=== PATIENT | female | born 1970 | race Caucasian/White ===

== ENCOUNTER 2016-11-14 00:27 | Emergency (ER) | payer BC ==
[~2016-11-14] VITALS: Ht 172.7 cm; Wt 90.7 kg
[2016-11-14 00:27] VITALS: BP 145/87
[~2016-11-14 00:27] MED LIST: ACET325T9 PO; ATEN50TA PO; ATOM25CA PO; CHOL20003 PO; FERR325T58 PO; FLUO20CA16 PO; LAMO100T5 PO; LISI-338 PO; LISI10TA2 PO; LISI2.5T PO; MELO-150 PO; METF500T4 PO; MULT-317 PO; MULT-496 PO; NAPR500T3 PO; PANT40TA3 PO; RANI150C PO; RANI150T2 PO; SIMV20TA PO; SIMV20TA3 PO; SIMV40TA3 PO
--- NOTE | 2016-11-14 01:34 | ED.ADGEN ---
Past History Past Medical History: Arthritis, Diabetes, Gallstones, GERD, High Cholesterol, Hypertension Past Surgical History: Cholecystectomy, Other Smoking: Non-smoker Alcohol Use: None Drug Use: None Adult General Chief Complaint Chief Complaint Left knee pain HPI HPI He is a pleasant 46-year-old female who presents with a two-day history of left knee pain that began relatively acutely on getting up from a seated position using the restroom to standing position. Initially upon rising she felt a burning sensation and increased pain to the medial inferior aspect of her left knee. She does have a history of degenerative joint changes in that knee and hip secondary to overuse syndrome area she's been told she needs any replacement but is not gone in evaluation for that purpose. She has a history of diabetes hypertension high cholesterol degenerative joint disease chronic history of left lump in her breast. She does not smoke does not drink doesn't use any recreational drugs rising direct trauma to the knee numbness and tingling localized swelling fevers chills rash. She says that the pain is improved with oral anti-inflammatories worse when she bends or walks and puts pressure on the knee. She has been using a knee immobilizer just does help with her discomfort. She describes some joint instability. Review of Systems Review of Systems Constitutional: Denies fever or chills [] Eyes: Denies change in visual acuity, redness, or eye pain [] HENT: Denies nasal congestion or sore throat [] Respiratory: Denies cough or shortness of breath [] Cardiovascular: No additional information not addressed in HPI [] GI: Denies abdominal pain, nausea, vomiting, bloody stools or diarrhea [] : Denies dysuria or hematuria [] Musculoskeletal: Complains of knee pain Integument: Denies rash or skin lesions [] Neurologic: Denies headache, focal weakness or sensory changes [] Endocrine: Denies polyuria or polydipsia [] Family History Family History Medical family history for high cholesterol she will vascular accidents diverticulitis SC in her mother father has COPD coronary artery disease and related blood pressure elevated cholesterol lung cancer. Brother had massive SC at 44 years old sister had anemia hypertension and multiple breast lumps. Current Medications Current Medications Current Medications Medications (Trade) Dose Ordered Sig/Zoe Start Time Stop Time Status Last Admin Dose Admin Ketorolac Tromethamine (Toradol) 60 mg 1X ONCE 11/14/16 02:00 11/14/16 02:01 11/14/16 01:39 60 MG Allergies Allergies Allergies Coded Allergies Type Severity Reaction Last Updated Verified hydrocodone Adverse Reaction Intermediate N/V 08/01/16 Yes Physical Exam Physical Exam Constitutional: Well developed, well nourished, no acute distress, non-toxic appearance. [] Cardiovascular:Heart rate regular rhythm, no murmur [] Lungs & Thorax: Bilateral breath sounds clear to auscultation [] Skin: Warm, dry, no erythema, no rash. [] Extremities: Patient has tenderness to palpation over the medial inferior aspect of the medial collateral ligament as well as the patella. She has no warmth to the joint no evidence of significant cellulitis or soft tissue swelling. Small joint effusion noted along the medial aspect of the joint line. Patient has a negative Jasmin's negative anterior and posterior drawer test negative Lockman's test patient has no hesitation of flexion of the leg and extension of the leg. She has good posterior Refill +2 peripheral pulses at the posterior tibialis and popliteal arteries. Patient has normal cap refill +2 with normal sensation to light touch and proprioception. He has no tenderness of the ankle or hip on the left Neurologic: Alert and oriented X 3, normal motor function, normal sensory function, no focal deficits noted. [] Psychologic: Affect normal, judgement normal, mood normal. [] EKG EKG [] Radiology/Procedures Radiology/Procedures [X-ray date 11/14/2012 time 1:34 AM demonstrates severe osteoarthritis with joint space narrowing with no obvious tibial plateau fracture tibial spine fracture or significant joint effusion. There is no soft tissue swelling or area of subcutaneous air there is no obvious fracture.] Impressions: Knee pain secondary to osteoarthritis and degenerative joint changes. A chronic history of knee pain known to need a knee replacement came in for an evaluation for knee pain that acutely was worse with forced extension while sitting from a sitting position patient was ordered for an occult fracture somewhere in her knee joint. There is no evidence of laxity on physical examination there is no evidence of joint effusion or septic joint. At this point patient will be placed in an immobilizer and given crutches if necessary and pain control with anti-inflammatory very short course given her prior medical problems. Also referral back to her orthopedic surgeon for MRI completion and possible surgery to replace the joint. Patient given precautions asked to return for any increasing pain decreased sensation in the leg localized swelling fevers chills rash with joint pain or questions or concerns. Course & Med Decision Making Course & Med Decision Making Pertinent Labs and Imaging studies reviewed. (See chart for details) [] Final Impression Final Impression Degenerative joint changes in the knee chronic knee pain, osteoarthritis [] Problems: Dragon Disclaimer Dragon Disclaimer This electronic medical record was generated, in whole or in part, using a voice recognition dictation system. LINDA STONE MD Nov 14, 2016 01:34
[2016-11-14] MEDS ORDERED: NAPR500T PO (01:57)
[2016-11-14] MEDS ORDERED: KETOROLAC 60 MG/2 ML VIAL. IM ONE (02:00)
--- NOTE | 2016-11-14 07:22 | RAD ---
Left knee radiographs History: Severe left knee pain for 2 days. Comparison: None. Findings: AP, lateral, and oblique views of the left knee. No acute fracture or dislocation is identified. There may be trace joint effusion. There is advanced lateral compartment degeneration with large marginal osteophyte formation as well as almost complete loss of joint space. Moderate-severe medial compartment degeneration with large marginal osteophyte formation as well as a suspected presence of a joint body. Moderate-severe patellofemoral compartment degeneration is present. Impression: 1. Advanced tricompartment degeneration, atypically advanced for patient's age. 2. No acute fracture identified.
== END 2016-11-14 02:07 | disposition home or self-care (01) ==
LOC: ER 00:27
DX: G89.29 Other chronic pain (principal); M25.562 Pain in left knee; M17.12 Unilateral primary osteoarthritis, left knee; E78.00 Pure hypercholesterolemia, unspecified; E11.9 Type 2 diabetes mellitus without complications; I10 Essential (primary) hypertension; K21.9 Gastro-esophageal reflux disease without esophagitis; N63 Unspecified lump in breast; Z88.5 Allergy status to narcotic agent
CPT/HCPCS: 29505; 73562; 96372; 99284; J1885

== ENCOUNTER → 2017-04-22 | Outpatient (CLI) | payer BC ==
[~2017-04-22] MED LIST changes: -CHOL20003 PO; +CHOL20009 PO; -MELO-150 PO; +MELO15TA23 PO; +NAPR500T PO; -NAPR500T3 PO; +NAPR500T4 PO
--- NOTE | 2017-04-22 15:29 | RAD ---
Left breast ultrasound, 04/22/2017: History: Follow-up breast nodule A targeted ultrasound exam of the left breast was performed at the 2:00 location. Approximately 3 cm from the nipple there is a smooth oval-shaped hypoechoic nodule with mildly heterogeneous low level internal echoes. It is wider than tall. It currently measures approximately 6 x 7 x 4 mm. It has shown no definite change since the previous study. This would favor a benign etiology such as a fibroadenoma. Incidental note is again made of a small smooth cyst at the 1:00 location, approximate 7 cm from the nipple. IMPRESSION: Unchanged small left breast nodule with features most compatible with a fibroadenoma. Further sonographic surveillance is suggested to confirm stability. BI-RADS 3-probably benign findings.
== END | disposition home or self-care (01) ==
LOC: US 13:59
PROVIDERS: ATTEND Specialist
DX: N60.02 Solitary cyst of left breast (principal); N63.20 Unspecified lump in the left breast, unspecified quadrant
CPT/HCPCS: 76641

== ENCOUNTER → 2019-05-19 | Outpatient (CLI) | payer BC ==
[~2019-05-19] MED LIST changes: +METF500T16 PO; -METF500T4 PO; +NAPR-514 PO; +NAPR-683 PO; -NAPR500T PO; -NAPR500T4 PO
--- NOTE | 2019-05-20 11:07 | RAD ---
VENOUS REFLUX BILATERAL History: Varicose veins. Comparison: None. Discussion: Multiple longitudinal and transverse high resolution real-time images of the superficial venous system of the bilateral lower extremities. Left proximal greater saphenous vein measures 6 mm. Left proximal thigh greater saphenous vein measures 4 mm. Left proximal calf greater saphenous vein measures 2 mm with 0.7 seconds. Right proximal greater saphenous vein measures 5 mm with 0 seconds. Proximal thigh right greater saphenous vein measures 5 mm with 0.8 seconds. Right distal thigh greater saphenous vein measures 2 mm. Right small saphenous vein proximal calf measures 1 mm. Additional varicose veins are noted. Impression: 1. Varicose veins. No ultrasound evidence of reflux. Electronically signed by: Buddy Tony DO (05/20/2019 11:05 AM) [facility]
== END | disposition home or self-care (01) ==
LOC: US 09:41
PROVIDERS: ATTEND Nurse Practitioner
DX: I83.892 Varicose veins of left lower extremity with other complications (principal)
CPT/HCPCS: 93970

== ENCOUNTER 2019-07-26 20:33 | Emergency (ER) | payer BC, OTHER ==
[~2019-07-26] VITALS: Ht 172.7 cm; Wt 99.8 kg
[~2019-07-26 20:33] MED LIST changes: +SIMV20TA18 PO; -SIMV20TA3 PO; +SIMV40TA18 PO; -SIMV40TA3 PO
--- NOTE | 2019-07-26 21:46 | RAD ---
AP chest. HISTORY: Chest pain, short of breath AP view was taken of the chest. Lungs are clear. Heart is normal in size. There is no effusion. IMPRESSION: 1. No acute chest disease. Electronically signed by: Gray Alvarenga MD (07/26/2019 9:44 PM) [facility]
[2019-07-26 22:16] LABS: BASO % 0 % (0-3); EOS # 0.2 x10^3/uL (0.0-0.7); EOS % 3 % (0-3); HEMATOCRIT 41.3 % (36.0-47.0); HEMOGLOBIN 13.7 g/dL (12.0-15.5); LYMPH # 1.6 x10^3/uL (1.0-4.8); LYMPH % 27 % (24-48); MEAN CORPUSCULAR HEMOGLOBIN 29 pg (25-35); MEAN CORPUSCULAR HGB CONC 33 g/dL (31-37); MEAN CORPUSCULAR VOLUME 88 fL (79-100); MONO # 0.5 x10^3/uL (0.0-1.1); MONO % 9 % (0-9); NEUT # 3.7 x10^3uL (1.8-7.7); NEUT % 61 % (31-73); PLATELET COUNT 268 x10^3/uL (140-400); RED BLOOD COUNT 4.71 x10^6/uL (3.50-5.40); RED CELL DISTRIBUTION WIDTH 13.4 % (11.5-14.5); WHITE BLOOD COUNT 6.1 x10^3/uL (4.0-11.0)
[2019-07-26 22:23] LABS: CALCIUM 9.3 mg/dL (8.5-10.1); CREATININE 0.7 mg/dL (0.6-1.0); GFR 89.7; POTASSIUM 3.9 mmol/L (3.5-5.1)
[2019-07-26 22:35] LABS: ALBUMIN 3.2 g/dL (3.4-5.0); ALBUMIN/GLOBULIN RATIO 0.9 (1.0-1.7); TOTAL BILIRUBIN 0.3 mg/dL (0.2-1.0); TOTAL PROTEIN 6.6 g/dL (6.4-8.2)
--- NOTE | 2019-07-26 22:51 | PHYS DOC ---
Past History Past Medical History: Arthritis, Diabetes, Gallstones, GERD, High Cholesterol, Hypertension, Other Past Surgical History: Cholecystectomy, Knee Replacement, Other Additional Past Surgical Histo: left ankle with plate and screws, left knee, Smoking: Non-smoker Alcohol Use: None Drug Use: None Adult General Chief Complaint Chief Complaint: SHORTNESS OF BREATH HPI HPI Patient is a 49-year-old female with multiple medical problems who presents with a 2-3 day history of shortness of breath. She has had an occasional cough and when she coughs she has some chest discomfort. She states the pain is described by her as a discomfort not a pressure not a sharp pain or a dull pain. She denies any nausea or vomiting or diaphoresis. She states when she gets up and moves around it seems to be a little bit better. She denies any lower extremity swelling. She has not had any fever chills or sweats. She denies any hemopt ysis.[] Review of Systems Review of Systems Constitutional: Denies fever or chills [] Eyes: Denies change in visual acuity, redness, or eye pain [] HENT: Denies nasal congestion or sore throat [] Respiratory: Per history of present illness[] Cardiovascular: No additional information not addressed in HPI [] GI: Denies abdominal pain, nausea, vomiting, bloody stools or diarrhea [] : Denies dysuria or hematuria [] Musculoskeletal: Denies back pain or joint pain [] Integument: Denies rash or skin lesions [] Neurologic: Denies headache, focal weakness or sensory changes [] Endocrine: Denies polyuria or polydipsia [] All other systems were reviewed and found to be within normal limits, except as documented in this note. Allergies Allergies Allergies Coded Allergies Type Severity Reaction Last Updated Verified hydrocodone Adverse Reaction Intermediate N/V 08/01/16 Yes Physical Exam Physical Exam Constitutional: Well developed, well nourished, no acute distress, non-toxic appearance. [] HENT: Normocephalic, atraumatic, bilateral external ears normal, oropharynx moist, no oral exudates, nose normal. [] Eyes: PERRLA, EOMI, conjunctiva normal, no discharge. [] Neck: Normal range of motion, no tenderness, supple, no stridor. [] Cardiovascular:Heart rate regular rhythm, no murmur [] Lungs & Thorax: Bilateral breath sounds clear to auscultation [] Abdomen: Bowel sounds normal, soft, no tenderness, no masses, no pulsatile masses. [] Skin: Warm, dry, no erythema, no rash. [] Back: No tenderness, no CVA tenderness. [] Extremities: No tenderness, no cyanosis, no clubbing, ROM intact, no edema. [] Neurologic: Alert and oriented X 3, normal motor function, normal sensory function, no focal deficits noted. [] Psychologic: Very flat affect[] Current Patient Data Vital Signs Vital Signs Date Time Temp Pulse Resp B/P (MAP) Pulse Ox O2 Delivery O2 Flow Rate FiO2 07/26/19 20:40 97.7 62 18 100 Room Air Lab Results Laboratory Tests Test 07/26/19 21:56 White Blood Count 6.1 x10^3/uL (4.0-11.0) Red Blood Count 4.71 x10^6/uL (3.50-5.40) Hemoglobin 13.7 g/dL (12.0-15.5) Hematocrit 41.3 % (36.0-47.0) Mean Corpuscular Volume 88 fL (79-100) Mean Corpuscular Hemoglobin 29 pg (25-35) Mean Corpuscular Hemoglobin Concent 33 g/dL (31-37) Red Cell Distribution Width 13.4 % (11.5-14.5) Platelet Count 268 x10^3/uL (140-400) Neutrophils (%) (Auto) 61 % (31-73) Lymphocytes (%) (Auto) 27 % (24-48) Monocytes (%) (Auto) 9 % (0-9) Eosinophils (%) (Auto) 3 % (0-3) Basophils (%) (Auto) 0 % (0-3) Neutrophils # (Auto) 3.7 x10^3uL (1.8-7.7) Lymphocytes # (Auto) 1.6 x10^3/uL (1.0-4.8) Monocytes # (Auto) 0.5 x10^3/uL (0.0-1.1) Eosinophils # (Auto) 0.2 x10^3/uL (0.0-0.7) Basophils # (Auto) 0.0 x10^3/uL (0.0-0.2) Sodium Level 139 mmol/L (136-145) Potassium Level 3.9 mmol/L (3.5-5.1) Chloride Level 105 mmol/L (98-107) Carbon Dioxide Level 26 mmol/L (21-32) Anion Gap 8 (6-14) Blood Urea Nitrogen 16 mg/dL (7-20) Creatinine 0.7 mg/dL (0.6-1.0) Estimated GFR (Cockcroft-Gault) 89.7 BUN/Creatinine Ratio 23 (6-20) H Glucose Level 80 mg/dL (70-99) Calcium Level 9.3 mg/dL (8.5-10.1) Total Bilirubin 0.3 mg/dL (0.2-1.0) Aspartate Amino Transferase (AST) 14 U/L (15-37) L Alanine Aminotransferase (ALT) 28 U/L (14-59) Alkaline Phosphatase 83 U/L (46-116) Troponin I Quantitative < 0.017 ng/mL (0-0.055) PN-Mut-M-Type Natriuretic Peptide 33 pg/mL (0-124) Total Protein 6.6 g/dL (6.4-8.2) Albumin 3.2 g/dL (3.4-5.0) L Albumin/Globulin Ratio 0.9 (1.0-1.7) L EKG EKG EKG: Normal sinus rhythm rate of [address]-T changes[] Radiology/Procedures Radiology/Procedures [] Impressions: REASON: Chest pain, short of air PROCEDURE: CHEST AP ONLY AP chest. HISTORY: Chest pain, short of breath AP view was taken of the chest. Lungs are clear. Heart is normal in size. There is no effusion. IMPRESSION: 1. No acute chest disease. Course & Med Decision Making Course & Med Decision Making Pertinent Labs and Imaging studies reviewed. (See chart for details) [] Dragon Disclaimer Dragon Disclaimer This electronic medical record was generated, in whole or in part, using a voice recognition dictation system. Departure Departure: Impression: Primary Impression: Chest pain of uncertain etiology Additional Impression: Acute dyspnea Disposition: HOME, SELF-CARE Condition: STABLE Referrals: PCP,NO (PCP) Patient Instructions: Shortness of Breath Additional Instructions: Return to the emergency department with any new or concerning symptoms Problem Qualifiers MANDY VASQUEZ DO Jul 26, 2019 22:51
[2019-07-26 22:55] VITALS: BP 131/73
--- NOTE | 2019-07-27 00:51 | EKG ---
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
== END 2019-07-26 22:58 | disposition home or self-care (01) ==
LOC: ER 20:33
DX: R06.09 Other forms of dyspnea (principal); R07.9 Chest pain, unspecified; M19.90 Unspecified osteoarthritis, unspecified site; E11.9 Type 2 diabetes mellitus without complications; K21.9 Gastro-esophageal reflux disease without esophagitis; E78.00 Pure hypercholesterolemia, unspecified; I10 Essential (primary) hypertension; Z88.5 Allergy status to narcotic agent
CPT/HCPCS: 36415; 71045; 80053; 83880; 84484; 85025; 93005; 99285

== ENCOUNTER → 2020-02-21 | Outpatient (CLI) | payer OTHER ==
[~2020-02-21] MED LIST changes: +ASPI81TA59 PO; +CALC600T6 PO; +MAGN250T10 PO
== END | disposition home or self-care (01) ==
LOC: LAB 16:13
PROVIDERS: ATTEND Nurse Anesthetist, Certified Registered
DX: Z01.818 Encounter for other preprocedural examination (principal); Z11.59 Encounter for screening for other viral diseases
CPT/HCPCS: 36415; U0003

== ENCOUNTER → 2020-02-24 | Day surgery (SDC) | payer OTHER ==
[~2020-02-24] MED LIST changes: +IPRATRPIUM/ALBUTEROL 0.5/2.5MG 3 ML NEBU. NEB PRN; +IV RINGERS SOLUTION,LACTATED 1,000 ML IV SCH; +MIDAZOLAM HCL PF 2 MG/2 ML VIAL. IV ONE; +ONDANSETRON PF 4 MG/2 ML VIAL. IV PRN; +PROPOFOL 10,000 MCG/ML (20ML) VIAL IV ONE
[2020-02-24 14:05] VITALS: BP 132/72
--- NOTE | 2020-02-28 18:06 | PATHOLOGY ---
[facility] Accession Number: [id number] . 01 Material submitted: . PART A: stomach - ANTRUM GASTRITIS PART B: stomach - GASTRIC BIOPSIES . 01 Clinical history: . Dysphagia, GERD . 02 Diagnosis: A. Gastric biopsies, antrum: - Chronic gastritis, mild. . B. Gastric biopsy, gastric polyp: - Fundic gland polyp. (M:[facility] 02/28/2020) [facility] 02/28/2020 0928 Local . 02 Comment: Sections of the gastric antral biopsy reveal segments of gastric body and antral/body transition mucosa showing congestion and mild chronic inflammation. A properly controlled immunoperoxidase stain for Helicobacter is negative for Helicobacter organisms. . Sections of the gastric polyp biopsy reveal a polypoid segment of gastric body mucosa containing scattered cystically dilated fundic glands consistent with fundic gland polyp. There is focal mild chronic inflammation. A properly controlled immunoperoxidase stain for Helicobacter is negative for Helicobacter organisms. (JP:[facility] 02/28/2020) . Special stain performed: Immunoperoxidase stains for Helicobacter on A1 and B1. . 02 Electronically signed: . Will Pulliam MD, Pathologist NPI- [id number] . 01 Gross description: . A. The specimen is received in formalin, labeled "Jovita Gardner, antrum gastritis". Received are two segments of pale mcgarry soft tissue ranging in size from 0.3 to 0.5 cm in maximum dimensions. The specimen is submitted entirely in cassette A1. . B. The specimen is received in formalin, labeled "Jovita Gardner, gastric polyp". The specimen is additionally labeled on the requisition as, "gastric biopsy". Received is a segment of pale mcgarry soft tissue measuring 0.4 cm in maximum dimensions. The specimen is submitted entirely in cassette B1. ([facility]; 02/27/2020) [facility] 02/27/2020 1625 Local . 02 Pathologist provided ICD-10: K29.50, K31.7 . 02 CPT . 317427, 848063, Y20370, [id number] Specimen Comment: A courtesy copy of this report has been sent to [phone], [phone] Specimen Comment: [id number] Specimen Comment: Report sent to / DR ZEPEDA Performed at: 01 [facility] [address] [facility] [address], [place] [id number] MD [place] MD Phone: [phone] Performed at: 02 [facility] [address] [place], [place] [id number] MD Will Pulliam MD Phone: [phone]
== END | disposition home or self-care (01) ==
LOC: SURG 11:30
PROVIDERS: ATTEND Internal Medicine Gastroenterology
DX: R13.10 Dysphagia, unspecified (principal); K21.9 Gastro-esophageal reflux disease without esophagitis; K29.50 Unspecified chronic gastritis without bleeding; K31.7 Polyp of stomach and duodenum; K22.2 Esophageal obstruction; K44.9 Diaphragmatic hernia without obstruction or gangrene; E03.9 Hypothyroidism, unspecified; I10 Essential (primary) hypertension; M19.90 Unspecified osteoarthritis, unspecified site; Z98.890 Other specified postprocedural states; Z90.49 Acquired absence of other specified parts of digestive tract; Z79.899 Other long term (current) drug therapy; Z88.8 Allergy status to other drugs, medicaments and biological substances; Z79.82 Long term (current) use of aspirin
CPT/HCPCS: 43239; 43450; J2704; J7120

== ENCOUNTER → 2020-03-27 | Outpatient (CLI) | payer OTHER ==
[2020-02-24 14:05] VITALS: BP 132/72
[~2020-03-27] MED LIST changes: -IPRATRPIUM/ALBUTEROL 0.5/2.5MG 3 ML NEBU. NEB PRN; -IV RINGERS SOLUTION,LACTATED 1,000 ML IV SCH; -MIDAZOLAM HCL PF 2 MG/2 ML VIAL. IV ONE; -ONDANSETRON PF 4 MG/2 ML VIAL. IV PRN; -PROPOFOL 10,000 MCG/ML (20ML) VIAL IV ONE
--- NOTE | 2020-03-27 13:39 | RAD ---
History: Reason: / Spl. Instructions: / History: Procedure: The patient ate a standard meal containing 2.1 mCi Tc-99m sulfur colloid. Scintigraphic images of the abdomen were obtained. Counts were obtained. Findings: Retention percentages are as follows: 1 Hr: 65 2 Hr:45 3 Hr:18 4 Hr:15 Time to half emptying for solids is 99 minutes Normal Retention Percentage Range is as Follows: 1 Hr: 35-91% 2 Hr: 2.7-60% 3 Hr: 0.5-28% 4 Hr: 0-10% Impression: Time to half emptying for solids is 99 minutes which is within normal limits. Gastric retention percentages are within normal limits at the 1 through 3 hour time point but slightly delayed at 4 hours. Electronically signed by: Alex Blanca MD (03/27/2020 1:36 PM) [id number]
== END | disposition home or self-care (01) ==
LOC: NM 07:54
PROVIDERS: ATTEND Internal Medicine Gastroenterology
DX: K31.84 Gastroparesis (principal)
CPT/HCPCS: 78264; A9541

== ENCOUNTER → 2020-03-30 | Outpatient (CLI) | payer OTHER ==
[2020-02-24 14:05] VITALS: BP 132/72
--- NOTE | 2020-03-30 16:11 | RAD ---
Examination: Ultrasound thyroid gland HISTORY: History of neck mass COMPARISON: None available. The right lobe of the thyroid gland measures 4.6 x 1.4 1.1 cm. The left lobe of the thyroid gland measures 4.2x 1.4 x 0.9 cm. Subcentimeter nodules identified in the right and left lobes of thyroid gland with heterogeneous mixed solid and cystic nodule identified in the isthmus thyroid gland measuring 2.0 x 1.5 x 1.1 cm. IMPRESSION: 1. Heterogeneous mixed nodule identified in the isthmus of thyroid gland. ACR Ti-RADS: 3, mildly suspicious. Consider fine-needle aspiration. Electronically signed by: Diego De Jesus MD (03/30/2020 4:09 PM) [id number]
== END | disposition home or self-care (01) ==
LOC: RAD 14:10
PROVIDERS: ATTEND Family Medicine
DX: E04.1 Nontoxic single thyroid nodule (principal); R22.1 Localized swelling, mass and lump, neck
CPT/HCPCS: 76536

== ENCOUNTER 2020-07-13 08:55 | Emergency (ER) | payer OTHER ==
[~2020-07-13] VITALS: Ht 172.7 cm; Wt 104.6 kg
[2020-07-13] MEDS ORDERED: CEPH250S2 PO (09:24)
--- NOTE | 2020-07-13 09:24 | PHYS DOC ---
Past History Past Medical History: Arthritis, Diabetes, Gallstones, GERD, High Cholesterol, Hypertension, Other Past Surgical History: Cholecystectomy, Knee Replacement, Other Additional Past Surgical Histo: left ankle with plate and screws, left knee, Smoking: Non-smoker Alcohol Use: None Drug Use: None General Adult EDM: Chief Complaint: SKIN PROBLEM HPI: HPI: Patient is a 50-year-old female presents with a chief complaint of cellulitis to left lower extremity. Patient stated she noticed swelling and redness along the anterior aspect of her left lee yesterday. Symptoms progressively worse since onset. Review of Systems: Review of Systems: Constitutional: Denies fever or chills Eyes: Denies change in visual acuity HENT: Denies nasal congestion or sore throat Respiratory: Denies cough or shortness of breath Cardiovascular: Denies chest pain or edema GI: Denies abdominal pain, nausea, vomiting, bloody stools or diarrhea : Denies dysuria Musculoskeletal: Denies back pain or joint pain Integument: Positive cellulitis Neurologic: Denies headache, focal weakness or sensory changes Endocrine: Denies polyuria or polydipsia Lymphatic: Denies swollen glands Psychiatric: Denies depression or anxiety Allergies: Allergies: Allergies Coded Allergies Type Severity Reaction Last Updated Verified hydrocodone Adverse Reaction Intermediate N/V 02/20/20 Yes Physical Exam: PE: Constitutional: Well developed, well nourished, no acute distress, non-toxic appearance. [] HENT: Normocephalic, atraumatic, bilateral external ears normal, oropharynx moist, no oral exudates, nose normal. [] Eyes: PERRLA, EOMI, conjunctiva normal, no discharge. [] Neck: Normal range of motion, no tenderness, supple, no stridor. [] Cardiovascular:Heart rate regular rhythm, no murmur [] Lungs & Thorax: Bilateral breath sounds clear to auscultation [] Abdomen: Bowel sounds normal, soft, no tenderness, no masses, no pulsatile masses. [] Skin: Warm, dry, no erythema, no rash. [] Back: No tenderness, no CVA tenderness. [] Extremities: No tenderness, no cyanosis, no clubbing, ROM intact, no edema. [] Neurologic: Alert and oriented X 3, normal motor function, normal sensory function, no focal deficits noted. [] Psychologic: Affect normal, judgement normal, mood normal. [] EKG: EKG: [] Radiology/Procedures: Radiology/Procedures: [] Heart Score: Risk Factors: Risk Factors: DM, Current or recent (<one month) smoker, HTN, HLP, family history of CAD, obesity. Risk Scores: Score 0 - 3: 2.5% MACE over next 6 weeks - Discharge Home Score 4 - 6: 20.3% MACE over next 6 weeks - Admit for Clinical Observation Score 7 - 10: 72.7% MACE over next 6 weeks - Early Invasive Strategies Course & Med Decision Making: Course & Med Decision Making Pertinent Labs and Imaging studies reviewed. (See chart for details) [] Patient advised to take Tylenol as needed for pain. She did find any prescription pain medications. Patient will be prescribed Keflex liquid. She is advised to follow-up with her primary care physician in the next 3 to 5 days. Leo Disclaimer: Dragon Disclaimer: This electronic medical record was generated, in whole or in part, using a voice recognition dictation system. Departure Departure: Impression: Primary Impression: Cellulitis Disposition: 01 DC HOME SELF CARE/HOMELESS Condition: STABLE Referrals: JAYESH ZEPEDA MD (PCP) Patient Instructions: Cellulitis Scripts Cephalexin (CEPHALEXIN) 250 Mg/5 Ml Susp.recon 10 ML PO QID for 10 Days, #400 ML Prov: FRANK RAMIREZ DO 07/13/20 FRANK RAMIREZ DO Jul 13, 2020 09:24
[2020-07-13 09:51] VITALS: BP 138/89
== END 2020-07-13 09:51 | disposition home or self-care (01) ==
LOC: ER 08:55
DX: L03.116 Cellulitis of left lower limb (principal); M19.90 Unspecified osteoarthritis, unspecified site; E11.9 Type 2 diabetes mellitus without complications; K21.9 Gastro-esophageal reflux disease without esophagitis; E78.00 Pure hypercholesterolemia, unspecified; I10 Essential (primary) hypertension; Z88.5 Allergy status to narcotic agent
CPT/HCPCS: 99283

== ENCOUNTER 2021-02-22 03:03 | Emergency (ER) | payer OTHER ==
[~2021-02-22] VITALS: Ht 172.7 cm; Wt 112.0 kg
[~2021-02-22 03:03] MED LIST changes: -CALC600T6 PO; +CALC600T60 PO; +CEPH250S2 PO; -LISI-338 PO; +LISI-517 PO; +LISI10TA16 PO; -LISI10TA2 PO; -LISI2.5T PO; +LISI2.5T12 PO
--- NOTE | 2021-02-22 03:33 | PHYS DOC ---
Past History Past Medical History: Arthritis, Diabetes, Gallstones, GERD, High Cholesterol, Hypertension, Other Past Surgical History: Cholecystectomy, Other Additional Past Surgical Histo: left knee and ankle Smoking: Non-smoker Alcohol Use: None Drug Use: None General Adult EDM: Chief Complaint: MULTIPLE COMPLAINTS HPI: HPI: ".. I don't know.. I am just weak... been taking some cold meds this week.. My got it too...he been sick the past week too... I just so weak.. Don't feel well.. " Patient is a 50 year old female who presents with above hx and complaints of generalized weakness, nausea, malaise, arthralgia, myalgia. Some subjective fevers. Pt. did not get COVID vaccination. Pt. hx of arthritis, hyperglycemia, gallstones, GERD, elevated cholesterol, cellulitis, obesity, hypertension, tenia versa Eileen. The patient normally follows with Dr. Stark. No recent travel. No specific ill contacts. No history of immunosuppression. Review of Systems: Review of Systems: Constitutional: Subjective fevers and malaise Eyes: Denies change in visual acuity HENT: Denies nasal congestion or sore throat Respiratory: Denies cough or shortness of breath Cardiovascular: Denies chest pain or edema GI: Denies abdominal pain, nausea, vomiting, bloody stools or diarrhea : Denies dysuria Musculoskeletal: Complains of generalized arthralgia and myalgia Integument: Denies rash Neurologic: Denies headache, focal weakness or sensory changes Endocrine: Denies polyuria or polydipsia Lymphatic: Denies swollen glands Psychiatric: Denies depression or anxiety Family History: Family History: Noncontributory to presentation Current Medications: Current Meds: See nursing for home meds Allergies: Allergies: Allergies Coded Allergies Type Severity Reaction Last Updated Verified hydrocodone Adverse Reaction Intermediate N/V 02/22/21 Yes Physical Exam: PE: Constitutional: Moderate acute distress, non-toxic appearance. [] HENT: Normocephalic, atraumatic, bilateral external ears normal, oropharynx moist, no oral exudates, nose swollen turbinates and clear rhinorrhea. Postnasal drainage noted Eyes: PERRLA, EOMI, conjunctiva normal, no discharge. [] Neck: Normal range of motion, no tenderness, supple, no stridor. [] Cardiovascular:Heart rate regular rhythm, no murmur [] PMI to left Lungs & Thorax: Bilateral breath sounds equal apex with few basilar crackles auscultation [] Abdomen: Bowel sounds normal, soft, no tenderness, no masses, no pulsatile masses. Morbidly obese. Old surgery scar. Skin: Warm, dry, no erythema, tenia versa Eileen. Back: No tenderness, no CVA tenderness. [] Extremities: No tenderness, no cyanosis, no clubbing, ROM intact, no edema. No cording appreciated. Old surgery scar left ankle and left knee. Arthritic changes. Neurologic: Alert and oriented X 3, moves all extremities on request, does have distal sensory,, no focal deficits noted. [] Psychologic: Affect anxious, judgement normal, mood normal. [] Current Patient Data: Vital Signs: Vital Signs Date Time Temp Pulse Resp B/P (MAP) Pulse Ox O2 Delivery O2 Flow Rate FiO2 02/22/21 03:15 98.0 72 18 149/87 97 Room Air EKG: EKG: My interpretation EKG shows a sinus rhythm at 81 bpm. No acute morphology. Time of EKG was 0432 hrs. [] Radiology/Procedures: Radiology/Procedures: [][place] [address] IMAGING REPORT Signed PATIENT: LAWRENCE PRUETT ACCOUNT: [id number] : 1970 LOCATION: ER AGE: 50 SEX: F EXAM STATUS: REG ER ORD. PHYSICIAN: ROB SOTO MD REASON: discomfort, pain, dyspnea PROCEDURE: ACUTE ABDOMEN SERIES EXAM: 2 VIEW ABDOMEN WITH ONE VIEW CHEST. HISTORY: Abdominal pain, dyspnea. COMPARISON: 07/26/2019. FINDINGS: A frontal view of the chest and supine/upright views of the abdomen are obtained. The inspiration is small. There are no confluent infiltrates. There is no pneumothorax or pleural effusion. The heart is not enlarged. Cholecystectomy clips are noted. There is no pneumoperitoneum. There are no distended small bowel loops or significant air-fluid levels. There is gas distally. IMPRESSION: 1. No confluent infiltrates. 2. No evidence of obstruction. Electronically signed by: Jam Driver MD (02/22/2021 6:27 AM) [facility] DICTATED AND SIGNED BY: DOUGLAS DRIVER MD DATE: 02/22/21625 CC: ROB SOTO MD; JAYESH STARK MD ~MTH0 0 Heart Score: C/O Chest Pain: No HEART Score for Chest Pain: HEART Score for Chest Pain Response (Comments) Value History Slighlty/Non-Suspicious 0 ECG Nonspecific Repolarizatio 1 Age >45 - < 65 1 Risk Factors 1 or 2 Risk Factors 1 Troponin < Normal Limit 0 Total 3 Risk Factors: Risk Factors: DM, Current or recent (<one month) smoker, HTN, HLP, family history of CAD, obesity. Risk Scores: Score 0 - 3: 2.5% MACE over next 6 weeks - Discharge Home Score 4 - 6: 20.3% MACE over next 6 weeks - Admit for Clinical Observation Score 7 - 10: 72.7% MACE over next 6 weeks - Early Invasive Strategies Course & Med Decision Making: Course & Med Decision Making Pertinent Labs and Imaging studies reviewed. (See chart for details) Patient to remain active as possible. Patient follow-up primary care. Patient push fluids. Patient take Tylenol and ibuprofen for discomfort. Follow-up pending Covid testing. Went over this acute illness would get Covid vaccination as well as influenza this fall. Return if any concerns. Impression: 1. Viral syndrome [] Dragon Disclaimer: Dragon Disclaimer: This electronic medical record was generated, in whole or in part, using a voice recognition dictation system. Departure Departure: Referrals: JAYESH STARK MD (PCP) Dragon Disclaimer This chart was dictated in whole or in part using Voice Recognition software in a busy, high-work load, and often noisy Emergency Department environment. It may contain unintended and wholly unrecognized errors or omissions. Dragon Disclaimer This chart was dictated in whole or in part using Voice Recognition software in a busy, high-work load, and often noisy Emergency Department environment. It may contain unintended and wholly unrecognized errors or omissions. ROB SOTO MD Feb 22, 2021 03:33
[2021-02-22] MEDS ORDERED: IV RINGERS SOLUTION,LACTATED 1,000 ML IV SCH (04:15)
[2021-02-22 04:25] LABS: BASO % 0 % (0-3); EOS % 0 % (0-3); HEMATOCRIT 43.2 % (36.0-47.0); HEMOGLOBIN 14.5 g/dL (12.0-15.5); LYMPH # 0.8 x10^3/uL (1.0-4.8); LYMPH % 19 % (24-48); MEAN CORPUSCULAR HEMOGLOBIN 30 pg (25-35); MEAN CORPUSCULAR HGB CONC 34 g/dL (31-37); MEAN CORPUSCULAR VOLUME 88 fL (79-100); MONO # 0.6 x10^3/uL (0.0-1.1); MONO % 14 % (0-9); NEUT # 2.9 x10^3uL (1.8-7.7); NEUT % 67 % (31-73); PLATELET COUNT 208 x10^3/uL (140-400); RED CELL DISTRIBUTION WIDTH 13.5 % (11.5-14.5); WHITE BLOOD COUNT 4.3 x10^3/uL (4.0-11.0)
[2021-02-22 04:42] LABS: CALCIUM 8.3 mg/dL (8.5-10.1); CREATININE 0.7 mg/dL (0.6-1.0); GFR 89.3
[2021-02-22 04:54] LABS: ALBUMIN 3.1 g/dL (3.4-5.0); DIRECT BILIRUBIN 0.1 mg/dL (0.0-0.2); TOTAL BILIRUBIN 0.4 mg/dL (0.2-1.0); TOTAL PROTEIN 7.3 g/dL (6.4-8.2)
--- NOTE | 2021-02-22 05:03 | EKG ---
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
[2021-02-22 05:40] LABS: BARBITURATES NEG (NEG); BENZODIAZEPINES NEG (NEG); CANNABINOIDS NEG (NEG); COCAINE NEG (NEG); METHADONE NEG (NEG); OPIATES NEG (NEG); PHENCYCLIDINE NEG (NEG)
[2021-02-22 05:48] LABS: BACTERIA,URINE 0 /HPF (0-FEW); BILIRUBIN,URINE NEG (NEG); CLARITY,URINE CLEAR; COLOR,URINE YELLOW; GLUCOSE,URINE NEG (NEG); NITRITE,URINE NEG (NEG); RBC,URINE 0 /HPF (0-2); SQUAMOUS EPITHELIAL CELL,UR FEW /LPF; UROBILINOGEN,URINE 0.2 mg/dL (0.2 mg/dL)
[2021-02-22 05:54] LABS: AMPHETAMINE/METHAMPHETAMINE NEG (NEG)
[2021-02-22 06:21] VITALS: BP 115/71
--- NOTE | 2021-02-22 06:30 | RAD ---
EXAM: 2 VIEW ABDOMEN WITH ONE VIEW CHEST. HISTORY: Abdominal pain, dyspnea. COMPARISON: 07/26/2019. FINDINGS: A frontal view of the chest and supine/upright views of the abdomen are obtained. The inspiration is small. There are no confluent infiltrates. There is no pneumothorax or pleural eff usion. The heart is not enlarged. Cholecystectomy clips are noted. There is no pneumoperitoneum. There are no distended small bowel loops or significant air-fluid level s. There is gas distally. IMPRESSION: 1. No confluent infiltrates. 2. No evidence of obstruction. Electronically signed by: Jam Driver MD (02/22/2021 6:27 AM) [facility]
== END 2021-02-22 06:29 | disposition home or self-care (01) ==
LOC: ER 03:03
DX: U07.1 COVID-19 (principal); B34.9 Viral infection, unspecified; E11.9 Type 2 diabetes mellitus without complications; K21.9 Gastro-esophageal reflux disease without esophagitis; E78.5 Hyperlipidemia, unspecified; I10 Essential (primary) hypertension; Z90.49 Acquired absence of other specified parts of digestive tract
CPT/HCPCS: 74022; 80048; 80076; 80307; 81001; 82550; 83690; 83735; 83880; 84443; 84484; 85025; 85379; 85610; 85730; 87086; 93005; 96360; 99285; C9803; J7120; U0003

== ENCOUNTER 2021-02-25 11:51 | Emergency (ER) | payer OTHER ==
[~2021-02-25] VITALS: Ht 172.7 cm; Wt 112.0 kg
[2021-02-25 11:51] VITALS: BP 136/87
[2021-02-25] MEDS ORDERED: IV NORMAL SALINE 1,000ML 1,000 ML IV ONE (12:15)
[2021-02-25] MEDS ORDERED: ACETAMINOPHEN 325 MG TABLET PO ONE (12:15)
--- NOTE | 2021-02-25 12:27 | PHYS DOC ---
Past History Past Medical History: Arthritis, Diabetes, Gallstones, GERD, High Cholesterol, Hypertension, Other (PRESTON LEOS APRN) Past Surgical History: Cholecystectomy, Other Additional Past Surgical Histo: left knee and ankle (PRESTON LEOS APRN) Smoking: Non-smoker Alcohol Use: None Drug Use: None (PRESTON LEOS APRN) General Adult EDM: Chief Complaint: SHORTNESS OF BREATH HPI: HPI: Patient is a 50-year-old female being seen in the ER for shortness of breath and cough. She was brought in by EMS with her who is Covid positive. Patient has a pending Covid test. Patient is not answering any of my questions. She is alert to verbal stimuli but just mumbles in response to any questions. Her reports that her symptoms started 2 to 3 weeks ago along with his. It appears the patient has a history of hypertension hyperlipidemia. She is febrile and her O2 saturations are 94% on room air. Triage limited due to patients ability to answer questions clearly. (PRESTON LEOS APRN) Review of Systems: Review of Systems: 14 body systems of the review of systems have been reviewed. See HPI for pertinent positive and negative responses, otherwise all other systems are negative, nonpertinent or noncontributory (PRESTON LEOS APRN) Current Medications: Current Meds: Current Medications Medications (Trade) Dose Ordered Sig/Zoe Start Time Stop Time Status Last Admin Dose Admin Acetaminophen (Tylenol) 650 mg 1X ONCE 02/25/21 12:15 02/25/21 12:16 DC Sodium Chloride 1,000 ml @ 1,000 mls/hr 1X ONCE 02/25/21 12:15 02/25/21 13:14 (PRESTON LEOS APRN) Allergies: Allergies: Allergies Coded Allergies Type Severity Reaction Last Updated Verified hydrocodone Adverse Reaction Intermediate N/V 02/22/21 Yes (PRESTON LEOS APRN) Physical Exam: PE: Constitutional: Well developed, well nourished, no acute distress, patient appears to have generalized weakness HENT: Normocephalic, atraumatic, bilateral external ears normal, oropharynx moist, no oral exudates, nose normal. [] Eyes: PERRLA, EOMI, conjunctiva normal, no discharge. [] Neck: Normal range of motion, no stridor Cardiovascular:Heart rate regular rhythm, no murmur [] Lungs & Thorax: Bilateral breath sounds clear to auscultation [] Abdomen: Bowel sounds normal, soft, no tenderness, no masses, no pulsatile masses. [] Skin: Warm, dry, no erythema, no rash. [] Back: Normal range of motion Extremities: No tenderness, no cyanosis, no clubbing, ROM intact, no edema. [] Neurologic: Alert and oriented X 3, normal motor function, normal sensory function, no focal deficits noted. [] Psychologic: Affect normal, judgement normal, mood normal. [] (PRESTON LEOS APRN) Current Patient Data: Vital Signs: Vital Signs Date Time Temp Pulse Resp B/P (MAP) Pulse Ox O2 Delivery O2 Flow Rate FiO2 02/25/21 11:51 100.3 82 24 136/87 96 Room Air (PRESTON LEOS APRN) EKG: EKG: EKG performed by ER staff at 1227 shows sinus rhythm, no STEMI as read by Dr. Moreno at 1238[] (PRESTON LEOS APRN) Radiology/Procedures: Radiology/Procedures: PROCEDURE: CHEST AP ONLY EXAM: CHEST ONE VIEW. HISTORY: Shortness of breath. COMPARISON: 07/26/2019. FINDINGS: A frontal view of the chest is obtained. The inspiration is small. There are mild bilateral airspace infiltrates. There is no pneumothorax or pleural effusion. The heart is not enlarged. IMPRESSION: 1. Mild bilateral airspace infiltrates. Correlate for atypical pneumonia. Electronically signed by: Jam Driver MD (02/25/2021 12:24 PM) [id number] DICTATED AND SIGNED BY: DOUGLAS DRIVER MD DATE: 02/25/21 1223 CC: PRESTON LEOS APRN; JAYESH ZEPEDA MD ~MTH0 0 [] (PRESTON LEOS APRN) Heart Score: C/O Chest Pain: No Risk Factors: Risk Factors: DM, Current or recent (<one month) smoker, HTN, HLP, family history of CAD, obesity. Risk Scores: Score 0 - 3: 2.5% MACE over next 6 weeks - Discharge Home Score 4 - 6: 20.3% MACE over next 6 weeks - Admit for Clinical Observation Score 7 - 10: 72.7% MACE over next 6 weeks - Early Invasive Strategies (PRESTON LEOS APRN) Course & Med Decision Making: Course & Med Decision Making Pertinent Labs and Imaging studies reviewed. (See chart for details) Patient is a 50-year-old female being seen for shortness of breath and cough. Patient's is Covid positive. Patient has a pending Covid test. Work-up in the ER consisted of blood work, UA, EKG, chest x-ray. Patient was treated with normal saline and she was given Tylenol for her fever. Lab work unremarkable. Chest x-ray showed mild bilateral infiltrates. Patient treated with an antibiotic in the ER. Patient's vital signs are stable, she is nonlabored, no hypoxia. Patient will be discharged home with antibiotic. She is given dose of steroids prior to discharge. I discussed with patient all findings and diagnostic testing as well as the need to follow-up with PCP for further evaluation and treatment or return to the ER if any new or worsening symptoms. Strict return precautions were also discussed at length. Patient voiced understanding and agreement with the plan. Patient is hemodynamically stable at the time of disposition. (PRESTON LEOS APRN) Dragon Disclaimer: Dragon Disclaimer: This electronic medical record was generated, in whole or in part, using a voice recognition dictation system. (PRESTON LEOS APRN) Departure Departure: Impression: Primary Impression: Pneumonia due to COVID-19 virus Disposition: HOME / SELF CARE / HOMELESS Condition: GOOD Referrals: JAYESH ZEPEDA MD (PCP) Patient Instructions: Pneumonia, Adult Additional Instructions: You were seen in the ER today for shortness of breath and cough. You had a positive Covid test. Your chest x-ray showed pneumonia. As we discussed, we treated with an antibiotic in the ER. You will be discharged home with an antibiotic. Please take the antibiotic as directed. You can take Tylenol for pain or fevers. You need to follow-up with your primary care provider tomorrow regarding your ER visit. If you develop worsening of your shortness of breath, chest pain, fevers refractory to treatment, uncontrollable nausea or vomiting please return to the ER immediately. EMERGENCY DEPARTMENT GENERAL DISCHARGE INSTRUCTIONS Thank you for coming to [facility] (ED) today and trusting us with you care. We trust that you had a positivie experience in our Emergency Department. If you wish to speak to the department management, you may call the director at [phone]. YOUR FOLLOW UP INSTRUCTIONS ARE FOLLOWS: 1. Do you have a private Doctor? If you do not have a private doctor, please ask for a resource list of physicians or clinics that may be able to assist you with follow up care. 2. The Emergency Physician has interpreted your x-rays. The X-Ray specialist will also review them. If there is a change in the findings, you will be notified in 48 hours when at all possible. 3. A lab test or culture has been done, your results will be reviewed and you will be notified if you need a change in treatment. ADDITIONAL INSTRUCTIONS AND INFORMATION: 1. Your care today has been supervised by a physician who is specially trained in emergency care. Many problems require more than one evaluation for a complete diagnosis and treatment. We recommend that you schedule your follow up appointment as recommended to ensure complete treatment of you illness or injury. If you are unable to obtain follow up care and continue to have a problem, or if your condition worsens, we recommend that you return to the ED. 2. We are not able to safely determine your condition over the phone nor are we able to give sound medical advice over the phone. For these safety reasons, if you call for medical advice we will ask you to come to the ED for further evaluation. 3. If you have any questions regarding these discharge instructions please call the ED at [phone]. SAFETY INFORMATION: In the interest of safety, wellness, and injury prevention; we encourage you to wear your sealbelt, if you smoke; quite smoking, and we encourage family to use a protective helmet for bicycling and other sporting events that present an increased risk for head injury. IF YOUR SYMPTOMS WORSEN OR NEW SYMPTOMS DEVELOP, OR YOU HAVE CONCERNS ABOUT YOUR CONDITION; OR IF YOUR CONDITION WORSENS WHILE YOU ARE WAITING FOR YOUR FOLLOW UP APPOINTMENT; EITHER CONTACT YOUR PRIMARY CARE DOCTOR, THE PHYSICIAN WHOSE NAME AND NUMBER YOU WERE GIVEN, OR RETURN TO THE ED IMMEDIATELY. Scripts Azithromycin (AZITHROMYCIN TABLET) 250 Mg Tablet 250 MG PO DAILY for ANTI-BIOTIC for 4 Days, #4 TAB 0 Refills Prov: PRESTON LEOS APRN 02/25/21 PRESTON LEOS APRN Feb 25, 2021 12:27 MORENOLAKSHMI DO Feb 25, 2021 20:47
[2021-02-25] MEDS ORDERED: cefTRIAXone SODIUM 1 GM VIAL ONE (12:56)
[2021-02-25] MEDS ORDERED: IV NORMAL SALINE 100ML 100 ML ONE (12:57)
[2021-02-25] MEDS ORDERED: AZITHROMYCIN 250 MG TABLET. PO ONE (13:00)
--- NOTE | 2021-02-25 13:21 | EKG ---
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
[2021-02-25] MEDS ORDERED: IV NORMAL SALINE 50ML 50 ML ONE (13:33)
[2021-02-25 14:23] LABS: BASO % 0 % (0-3); EOS % 0 % (0-3); HEMATOCRIT 47.2 % (36.0-47.0); HEMOGLOBIN 15.6 g/dL (12.0-15.5); LYMPH # 0.6 x10^3/uL (1.0-4.8); LYMPH % 15 % (24-48); MEAN CORPUSCULAR HEMOGLOBIN 29 pg (25-35); MEAN CORPUSCULAR HGB CONC 33 g/dL (31-37); MEAN CORPUSCULAR VOLUME 89 fL (79-100); MONO # 0.5 x10^3/uL (0.0-1.1); MONO % 12 % (0-9); NEUT # 2.9 x10^3uL (1.8-7.7); NEUT % 73 % (31-73); PLATELET COUNT 200 x10^3/uL (140-400); RED BLOOD COUNT 5.31 x10^6/uL (3.50-5.40); RED CELL DISTRIBUTION WIDTH 13.6 % (11.5-14.5)
[2021-02-25 14:52] LABS: CALCIUM 8.5 mg/dL (8.5-10.1); CREATININE 0.7 mg/dL (0.6-1.0); GFR 89.3; POTASSIUM 4.1 mmol/L (3.5-5.1)
[2021-02-25 14:58] LABS: ALBUMIN 3.3 g/dL (3.4-5.0); ALBUMIN/GLOBULIN RATIO 0.7 (1.0-1.7); TOTAL BILIRUBIN 0.7 mg/dL (0.2-1.0); TOTAL PROTEIN 7.8 g/dL (6.4-8.2)
[2021-02-25 15:04] LABS: BILIRUBIN,URINE NEG (NEG); CLARITY,URINE CLEAR; COLOR,URINE YELLOW; GLUCOSE,URINE NEG (NEG); NITRITE,URINE NEG (NEG); UROBILINOGEN,URINE 0.2 mg/dL (0.2 mg/dL)
[2021-02-25 15:05] LABS: BACTERIA,URINE FEW /HPF (0-FEW); RBC,URINE 0 /HPF (0-2); SQUAMOUS EPITHELIAL CELL,UR OCC /LPF
[2021-02-25] MEDS ORDERED: AZIT250T6 PO (15:23)
[2021-02-25] MEDS ORDERED: DEXAMETHASONE SOD PHOS 10 MG/ML VIAL. IVP ONE (15:30)
== END 2021-02-25 16:00 | disposition home or self-care (01) ==
LOC: ER 11:51
DX: R06.02 Shortness of breath (principal); R05 Cough; R53.1 Weakness; M19.90 Unspecified osteoarthritis, unspecified site; E11.9 Type 2 diabetes mellitus without complications; K21.9 Gastro-esophageal reflux disease without esophagitis; E78.00 Pure hypercholesterolemia, unspecified; I10 Essential (primary) hypertension; Z20.822 Contact with and (suspected) exposure to COVID-19; Z90.49 Acquired absence of other specified parts of digestive tract; Z88.5 Allergy status to narcotic agent
CPT/HCPCS: 36415; 71045; 80053; 81001; 82947; 83605; 84484; 85025; 87040; 87086; 93005; 96361; 96365; 96375; 99285; J0696; J1100; J7030

== ENCOUNTER 2021-03-01 10:57 | Emergency (ER) | payer OTHER ==
[~2021-03-01] VITALS: Ht 162.6 cm; Wt 110.1 kg
[~2021-03-01 10:57] MED LIST changes: +AZIT250T6 PO
--- NOTE | 2021-03-01 11:38 | PHYS DOC ---
Past History Past Medical History: Arthritis, Diabetes, Gallstones, GERD, High Cholesterol, Hypertension, Other Past Surgical History: No Surgical History Additional Past Surgical Histo: left knee and ankle Smoking: Non-smoker Alcohol Use: None Drug Use: None General Adult EDM: Chief Complaint: SHORTNESS OF BREATH HPI: HPI: 50-year-old female presents via EMS with shortness of breath. Patient was diagnosed with COVID-19 this morning. She was tested within the last couple days and got her result this morning. She has been feeling fatigued and short of breath at home so she called an ambulance. The patient was tested just over a week ago because she had some Covid symptoms but was negative at that time. The were treating her for pneumonia with an antibiotic. The patient spouse also has COVID-19. Review of Systems: Review of Systems: Constitutional: Body aches, fatigue. Eyes: Denies change in visual acuity HENT: Denies nasal congestion or sore throat Respiratory: shortness of breath Cardiovascular: Denies chest pain or edema GI: Denies abdominal pain, nausea, vomiting, bloody stools or diarrhea : Denies dysuria Musculoskeletal: Denies back pain or joint pain Integument: Denies rash Neurologic: Denies headache, focal weakness or sensory changes Endocrine: Denies polyuria or polydipsia Lymphatic: Denies swollen glands Psychiatric: Denies depression or anxiety Allergies: Allergies: Allergies Coded Allergies Type Severity Reaction Last Updated Verified hydrocodone Adverse Reaction Intermediate N/V 02/22/21 Yes Physical Exam: PE: Constitutional: Well developed, morbidly obese, well nourished, no acute distress, non-toxic appearance. [] HENT: Normocephalic, atraumatic, bilateral external ears normal, oropharynx moist, no oral exudates, nose normal. [] Eyes: PERRLA, EOMI, conjunctiva normal, no discharge. [] Neck: Normal range of motion, no tenderness, supple, no stridor. [] Cardiovascular: Heart rate 70, regular rhythm, no murmur [] Lungs & Thorax: Bilateral breath sounds clear to auscultation [] Abdomen: Bowel sounds normal, soft, no tenderness, no masses, no pulsatile masses. [] Skin: Warm, dry, no erythema, no rash. [] Back: No tenderness, no CVA tenderness. [] Extremities: No tenderness, no cyanosis, no clubbing, ROM intact, no edema. [] Neurologic: Alert and oriented X 3, normal motor function, normal sensory function, no focal deficits noted. [] Psychologic: Affect normal, judgement normal, mood normal. [] Current Patient Data: Vital Signs: Vital Signs Date Time Temp Pulse Resp B/P (MAP) Pulse Ox O2 Delivery O2 Flow Rate FiO2 03/01/21 10:59 97.5 66 137/84 98 Room Air EKG: EKG: Sinus rhythm, rate 64, normal axis, no ST elevation or depression. [] Radiology/Procedures: Radiology/Procedures: [] Impressions: INDICATION: Reason: SHORTNESS OF BREATH / Spl. Instructions: / History: COMPARISON: February 25, 2021 FINDINGS: Single view of chest obtained. Cardiac silhouette unremarkable. Repeat demonstration of patchy opacities bilaterally with severity similar to prior IMPRESSION: * Repeat demonstration of mild opacities within the bilateral lungs which again could be secondary to bilateral infiltrate. Electronically signed by: Timoteo Blanca MD (03/01/2021 11:37 AM) DESKTOP- [id number] DICTATED AND SIGNED BY: TIMOTEO BLANCA MD DATE: 03/01/21 1136 CC: MIKEY MARTE DO; JAYESH ZEPEDA MD ~MTH0 0 Heart Score: C/O Chest Pain: N/A Risk Factors: Risk Factors: DM, Current or recent (<one month) smoker, HTN, HLP, family history of CAD, obesity. Risk Scores: Score 0 - 3: 2.5% MACE over next 6 weeks - Discharge Home Score 4 - 6: 20.3% MACE over next 6 weeks - Admit for Clinical Observation Score 7 - 10: 72.7% MACE over next 6 weeks - Early Invasive Strategies Course & Med Decision Making: Course & Med Decision Making Pertinent Labs and Imaging studies reviewed. (See chart for details) The patient's EKG is unremarkable. Her chest x-ray is similar to the previous one on the . It shows results consistent with COVID-19. The patient's oxygen saturation has been greater than 95% throughout her stay in the ER. Her labs are unremarkable. She is stable for discharge at this time. [] Dragon Disclaimer: Dragon Disclaimer: This electronic medical record was generated, in whole or in part, using a voice recognition dictation system. Departure Departure: Impression: Primary Impression: COVID-19 Disposition: 01 HOME / SELF CARE / HOMELESS Condition: STABLE Referrals: JAYESH ZEPEDA MD (PCP) Additional Instructions: You have been tested for or diagnosed with COVID-19. It is an infection caused by a new type of coronavirus. COVID-19 will cause cold-like or mild flu symptoms in most. It can cause more severe symptoms like problems breathing in some. There is no treatment for COVID-19. The body will clear the infection over time. Self-care will help to ease discomfort. Steps to Take: Self-Care Rest as needed. Healthy habits may help you feel better. Steps include: Choose healthy foods including fruits and vegetables. Drink water throughout the day. Get plenty of sleep each night. If you smoke, try to quit. It may ease breathing. Avoid alcohol. Keep Others Healthy The virus can spread to others. Droplets are released every time you sneeze or cough. The droplets can get into the mouth, nose, or eyes of people near you and lead to infection. To lower the chances of spreading COVID-19 to others: Stay at home until your doctor has said it is safe to leave. If you tested positive this will mean staying isolated until both of the following are true: At least 7 days have passed since the start of illness. You are free of fever for at least 72 hours without the use of medicine. During this time: - Avoid public areas, events, or transportation. Do not return to work or [facility] until your doctor has said it is safe to do so. - Call ahead if you need to go to a medical center. Let them know you may have COVID-19. It will help them guide you where to go. They may also ask you to wear a facemask when you come to the office. - If you call for emergency medical services, let them know you may have COVID- 19. While at home: - Try to avoid close contact with others. Stay about 6 feet away. - If possible, spend most of your time in a separate room from others. - Use a face mask if you will be in close contact with others such as sharing a room or vehicle. - Have someone wipe down common surfaces in the home. Use household work environment safety inspector every day on areas like doorknobs, counters, or sinks. - Cough or sneeze into a tissue. Throw the tissue away right after use. If a tissue is not available, cough or sneeze into your elbow. - Wash your hands often. Wash them after sneezing or coughing. Use soap and water and wash for at least 20 seconds. Alcohol based hand acid cleaner can be used if soap and water is not available. - Do not prepare food for others. Avoid sharing personal items like forks, spoons, or toothbrushes. - Avoid close contact with pets while you are sick. There is no evidence of the virus passing to pets. This is a safety step until more is known about this virus. Isolation can be frustrating. Social interaction can help. Keep in touch with friends and family through phone and tech options. You can still interact with others in your home, just keep a safe distance of about 6 feet. Follow-up: Your doctors office will check in with you to see if there are any changes in your health. You may be asked to keep track of symptoms to share with them. They will also let you know when you are clear to be in public again. Problems to Look Out For: Contact your doctor if your recovery is not going as you expect. Get emergency care if you have problems such as: - Trouble breathing - Nonstop chest pain or pressure - Changes in awareness, confusion, or problems waking - Lips or face have bluish color - Worsening of symptoms If you think you have an emergency, call for emergency medical services right away. As taken from [facility] MIKEY MARTE DO Mar 01, 2021 11:38
[2021-03-01] MEDS ORDERED: IV NORMAL SALINE 1,000ML 1,000 ML IV ONE (11:45)
[2021-03-01 12:17] LABS: BASO % 0 % (0-3); EOS % 1 % (0-3); HEMATOCRIT 45.3 % (36.0-47.0); HEMOGLOBIN 14.8 g/dL (12.0-15.5); LYMPH # 0.9 x10^3/uL (1.0-4.8); LYMPH % 15 % (24-48); MEAN CORPUSCULAR HEMOGLOBIN 29 pg (25-35); MEAN CORPUSCULAR HGB CONC 33 g/dL (31-37); MEAN CORPUSCULAR VOLUME 89 fL (79-100); MONO # 0.7 x10^3/uL (0.0-1.1); MONO % 11 % (0-9); NEUT # 4.2 x10^3uL (1.8-7.7); NEUT % 73 % (31-73); PLATELET COUNT 239 x10^3/uL (140-400); RED BLOOD COUNT 5.08 x10^6/uL (3.50-5.40); RED CELL DISTRIBUTION WIDTH 13.5 % (11.5-14.5); WHITE BLOOD COUNT 5.7 x10^3/uL (4.0-11.0)
[2021-03-01 12:28] LABS: CALCIUM 8.7 mg/dL (8.5-10.1); CREATININE 0.7 mg/dL (0.6-1.0); GFR 89.3; POTASSIUM 4.3 mmol/L (3.5-5.1)
[2021-03-01 12:34] LABS: ALBUMIN 3.1 g/dL (3.4-5.0); ALBUMIN/GLOBULIN RATIO 0.8 (1.0-1.7); TOTAL BILIRUBIN 0.7 mg/dL (0.2-1.0); TOTAL PROTEIN 7.1 g/dL (6.4-8.2)
[2021-03-01 13:07] VITALS: BP 127/77
== END 2021-03-01 13:37 | disposition home or self-care (01) ==
LOC: ER 10:57
DX: U07.1 COVID-19 (principal); M19.90 Unspecified osteoarthritis, unspecified site; E11.9 Type 2 diabetes mellitus without complications; K21.9 Gastro-esophageal reflux disease without esophagitis; E78.00 Pure hypercholesterolemia, unspecified; I10 Essential (primary) hypertension; Z88.5 Allergy status to narcotic agent
CPT/HCPCS: 36415; 71045; 80053; 84484; 85025; 93005; 96360; 96361; 99285; J7030

== ENCOUNTER 2021-05-24 10:48 | Emergency (ER) | payer OTHER ==
[~2021-05-24] VITALS: Ht 162.6 cm; Wt 110.0 kg
[~2021-05-24 10:48] MED LIST changes: -LISI-517 PO; +LISI5TAB15 PO
--- NOTE | 2021-05-24 11:20 | PHYS DOC ---
Past History Past Medical History: Arthritis, Diabetes, Gallstones, GERD, High Cholesterol, Hypertension, Other (TACOS CHAPPELL) Past Surgical History: No Surgical History Additional Past Surgical Histo: left knee and ankle (TACOS CHAPPELL) Smoking: Non-smoker Alcohol Use: None Drug Use: None (TACOS CHAPPELL) General Adult EDM: Chief Complaint: WOUND CHECK HPI: HPI: Patient is a 51 year old female who presents with a small superficial wound to her left lower extremity. Patient was upstairs at the urgent care having a mole or skin tag of some kind removed. During this process, a superficial varicose vein appears to have been nicked, and the patient bled. Urgent care center to the emergency department because she felt "shaky." All of patient's symptoms have resolved upon arrival to the emergency department. (TACOS CHAPPELL) Review of Systems: Review of Systems: 12 systems reviewed. ROS negative except as mentioned in HPI. (TACOS CHAPPELL) Allergies: Allergies: Allergies Coded Allergies Type Severity Reaction Last Updated Verified hydrocodone Adverse Reaction Intermediate N/V 02/22/21 Yes (TACOS CHAPPELL) Physical Exam: PE: Constitutional: Well developed, well nourished, no acute distress, non-toxic appearance. HENT: Normocephalic, atraumatic, bilateral external ears normal, oropharynx moist, no oral exudates, nose normal. Eyes: PERRLA, EOMI, conjunctiva normal, no discharge. Cardiovascular: Heart rate regular rhythm, no murmur. Lungs & Thorax: Bilateral breath sounds clear to auscultation. Skin: Left lower leg has a 2 mm wound that has formed a blood clot and scab without active bleeding on the anterior portion of the distal lee. Skin otherwise warm, dry, no erythema, no rash. Extremities: Varicose veins noted bilateral distal lower extremity. Otherwise no tenderness, no cyanosis, no clubbing, ROM intact, no edema. Neurologic: Alert and oriented x3, normal motor function, normal sensory function, no focal deficits noted. Psychologic: Affect anxious, fair judgment, mood "worried about the bleeding." (TACOS CHAPPELL) Current Patient Data: Vital Signs: VS - Last 72 Hours, by Label Date Time Temp Pulse Resp B/P (MAP) Pulse Ox O2 Delivery O2 Flow Rate FiO2 05/24/21 14:28 97.8 68 16 150/47 (81) 99 Room Air (TACOS CHAPPELL) Heart Score: C/O Chest Pain: No (TACOS CHAPPELL) Course & Med Decision Making: Course & Med Decision Making Pertinent Labs and Imaging studies reviewed. (See chart for details) Patient's reported symptoms have resolved upon arrival to the emergency dep artment. Nursing staff spoke to urgent care staff, who states they have finished the patient's procedure. At this time, there is no active bleeding or concern for hemorrhagic volume loss. Patient's vital signs are stable. Patient will be discharged home with instruction to use compression socks daily. Patient instructed to keep her wound clean and dry. Should it bleed again, she is instructed to apply pressure for 10-15 minutes for hemostasis. Patient understands and is agreeable to discharge plan. (TACOS CHAPPELL) Course & Med Decision Making I was the Attending physician on the above date of service of this patient. This patient was evaluated, examined, treated, and dispositioned from the emergency department by the mid-level practitioner. Although I was working at the time , no assistance was requested. Electronically signed, Gabe Dutton DO (GABE DUTTON DO) Leo Disclaimer: Leo Disclaimer: This electronic medical record was generated, in whole or in part, using a voice recognition dictation system. (TACOS CHAPPELL) Departure Departure: Impression: Primary Impression: Visit for wound check Disposition: HOME / SELF CARE / HOMELESS Condition: STABLE Referrals: JAYESH ZEPEDA MD (PCP) Patient Instructions: Bleeding Varicose Veins, Varicose Veins Additional Instructions: At this time, there is no active bleeding or concern for hemorrhagic volume loss. Your vital signs are stable. As discussed, you should use compression socks daily. Keep her wound clean and dry. Should it bleed again, apply pressure for 10-15 minutes to stop the bleeding. Return to the emergency department if these steps are unsuccessful or you develop any new symptoms. Additionally, follow-up with your primary care provider regarding further ma nagement of varicose veins. TACOS CHAPPELL May 24, 2021 11:20 GABE DUTTON DO May 25, 2021 06:23
[2021-05-24 14:28] VITALS: BP 150/47
== END 2021-05-24 11:34 | disposition home or self-care (01) ==
LOC: ER 10:48
DX: E11.9 Type 2 diabetes mellitus without complications (principal); K21.9 Gastro-esophageal reflux disease without esophagitis; E78.5 Hyperlipidemia, unspecified; I10 Essential (primary) hypertension; Z48.01 Encounter for change or removal of surgical wound dressing
CPT/HCPCS: 99281